=== PATIENT | male | born 1960 | race Caucasian/White ===

== ENCOUNTER 2016-11-07 10:38 | Emergency (ER) | payer OTHER ==
[~2016-11-07] VITALS: Ht 170.2 cm; Wt 96.4 kg
[2016-11-07 11:22] LABS: BASOPHILS % (AUTO) 0.3 % (0.0-2.0); HEMATOCRIT 47.3 % (41-53); HEMOGLOBIN 15.3 g/dL (13.5-17.5); LYMPHOCYTES # (AUTO) 1.5 K/uL (1.0-4.8); LYMPHOCYTES % (AUTO) 27.9 % (22.0-44.0); MEAN CORPUSCULAR HEMOGLOBIN 28.8 pg (26.0-34.0); MEAN CORPUSCULAR HGB CONC 32.4 G/dL (31.0-37.0); MEAN CORPUSCULAR VOLUME 89 fL (80-100); MONOCYTES # (AUTO) 0.5 K/uL (0.1-1.0); MONOCYTES % (AUTO) 9.3 % (2.0-9.0); NEUTROPHILS # (AUTO) 3.2 K/uL (1.8-7.7); NEUTROPHILS % (AUTO) 59.5 % (40.0-70.0); PLATELET COUNT (AUTO) 213 K/uL (150-450); RED BLOOD CELL COUNT(AUTO) 5.33 MIL/uL (4.50-5.90); RED CELL DISTRIBUTION WIDTH 14.6 % (11.5-14.5); WHITE BLOOD COUNT (AUTO) 5.4 K/uL (4.5-11.0)
[2016-11-07 11:32] LABS: ANION GAP 7 mmol/L (8-16); CALCIUM, TOTAL 8.7 mg/dL (8.8-10.5); CARBON DIOXIDE 30 mmol/L (22-29); CHLORIDE 104 mmol/L (98-107); GLOMERULAR FILTR. RATE CALC > 60 mL/min (>60); SODIUM SERUM 141 mmol/L (136-145); UREA NITROGEN, BLOOD 18 mg/dL (7-18)
[2016-11-07 11:33] LABS: INR 0.9 (0.9-1.1)
[2016-11-07 11:43] LABS: B-TYPE NATRIURETIC PEPTIDE 7 pg/mL (0-100)
[2016-11-07 11:56] LABS: ALANINE AMINOTRANSFERASE 34 U/L (12-78); ALBUMIN 3.6 g/dL (3.4-5.0); ASPARTATE AMINOTRANSFERASE 24 U/L (15-37); BILIRUBIN,TOTAL 0.5 mg/dL (0.1-1.0); CREATINE KINASE MB 2.3 ng/mL (0-5); CREATINE KINASE, TOTAL 183 U/L (39-308); TOTAL PROTEIN, SERUM 7.3 g/dL (6.4-8.2)
[2016-11-07 12:02] LABS: GLUCOSE COMMENT 1 Doctor Notified; GLUCOSE,POINT OF CARE 98 MG/DL (70-110)
[2016-11-07 12:09] LABS: APPEARANCE,URINE CLEAR (CLEAR); GLUCOSE, URINE (UA) NEGATIVE (NEGATIVE); KETONES,URINE NEGATIVE (NEGATIVE); LEUKOCYTE ESTERASE ,URINE NEGATIVE (NEGATIVE); OCCULT BLOOD,URINE NEGATIVE (NEGATIVE); PH,URINE 6.5 (5.0-8.0); PROTEIN,URINE NEGATIVE (NEGATIVE)
[2016-11-07 12:10] LABS: ADD UA MICROSCOPIC NO
[2016-11-07 14:16] VITALS: BP 125/87
== END 2016-11-07 14:36 | disposition home or self-care (01) ==
LOC: EMS 10:40
DX: R20.0 Anesthesia of skin (principal); R07.9 Chest pain, unspecified
CPT/HCPCS: 70450; 82962; 93005; 99285

== ENCOUNTER 2019-03-14 07:16 | Emergency (ER) | payer OTHER ==
[~2019-03-14] VITALS: Ht 172.7 cm; Wt 95.5 kg
[2019-03-14] MEDS ORDERED: KETOROLAC TROMETHAMINE 60 MG/2 ML VIAL IM ONE (09:00)
[2019-03-14 12:00] VITALS: BP 130/98
== END 2019-03-14 13:04 | disposition home or self-care (01) ==
LOC: EMS 07:20
DX: M25.511 Pain in right shoulder (principal); W11.XXXA Fall on and from ladder, initial encounter; Y93.89 Activity, other specified; Y92.69 Other specified industrial and construction area as the place of occurrence of the external cause; Y99.0 Civilian activity done for income or pay
CPT/HCPCS: 29105; 73030; 96372; 99283; J1885

== ENCOUNTER 2019-04-06 16:40 | Emergency (ER) | payer OTHER ==
[~2019-04-06] VITALS: Ht 172.7 cm; Wt 102.3 kg
[2019-04-06] MEDS ORDERED: DiphenhydrAMINE HCL 50 MG/ML VIAL IVP ONE (17:15)
[2019-04-06] MEDS ORDERED: SODIUM CHLORIDE 0.9% 1,000 ML IV ONE (17:15)
[2019-04-06] MEDS ORDERED: MethylPREDNISolone SOD SUCC 125 MG/2 ML VIAL IVP ONE (17:15)
[2019-04-06 19:44] VITALS: BP 133/85
== END 2019-04-06 20:22 | disposition home or self-care (01) ==
LOC: EMS 16:41
DX: T63.441A Toxic effect of venom of bees, accidental (unintentional), initial encounter (principal); Y92.89 Other specified places as the place of occurrence of the external cause
CPT/HCPCS: 96374; 96375; 99283; J1200; J2930; J7030

== ENCOUNTER 2019-08-28 11:38 | Emergency (ER) | payer SELFPAY ==
[~2019-08-28] VITALS: Ht 167.6 cm; Wt 113.0 kg
[2019-08-28 12:49] LABS: GLUCOSE, URINE (UA) NEGATIVE (NEGATIVE); KETONES,URINE 15 mg/dL (NEGATIVE); LEUKOCYTE ESTERASE ,URINE NEGATIVE (NEGATIVE); NITRATE,URINE NEGATIVE (NEGATIVE); OCCULT BLOOD,URINE NEGATIVE (NEGATIVE); PROTEIN,URINE POS 1+ (NEGATIVE)
[2019-08-28 13:06] LABS: BASOPHILS % (AUTO) 0.6 % (0.0-2.0); EOSINOPHILS % (AUTO) 1.6 % (1.0-6.0); HEMATOCRIT 47.7 % (41-53); HEMOGLOBIN 15.6 g/dL (13.5-17.5); LYMPHOCYTES # (AUTO) 0.5 K/uL (1.0-4.8); MEAN CORPUSCULAR HEMOGLOBIN 29.3 pg (26.0-34.0); MEAN CORPUSCULAR HGB CONC 32.7 G/dL (31.0-37.0); MEAN CORPUSCULAR VOLUME 90 fL (80-100); MONOCYTES # (AUTO) 0.5 K/uL (0.1-1.0); MONOCYTES % (AUTO) 13.7 % (2.0-9.0); NEUTROPHILS # (AUTO) 2.7 K/uL (1.8-7.7); NEUTROPHILS % (AUTO) 70.1 % (40.0-70.0); PLATELET COUNT (AUTO) 169 K/uL (150-450); RED BLOOD CELL COUNT(AUTO) 5.33 MIL/uL (4.50-5.90); RED CELL DISTRIBUTION WIDTH 14.1 % (11.5-14.5)
[2019-08-28 13:13] LABS: BILIRUBIN,URINE PRELIM. POSITIVE (NEGATIVE)
[2019-08-28 13:14] LABS: APPEARANCE,URINE HAZY (CLEAR); BACTERIA,URINE None Seen /HPF (None Seen); RBC,URINE 0-2 /HPF (0-2); WBC,URINE 0-2 /HPF (0-5)
[2019-08-28 13:18] LABS: ANION GAP 2 mmol/L (8-16); CALCIUM, TOTAL 8.5 mg/dL (8.8-10.5); CARBON DIOXIDE 33 mmol/L (22-29); CHLORIDE 104 mmol/L (98-107); CREATININE 1.17 mg/dL (0.60-1.30); GLOMERULAR FILTR. RATE CALC > 60 mL/min (>60); GLUCOSE,RANDOM 91 mg/dL (70-110); POTASSIUM 3.5 mmol/L (3.5-5.1); SODIUM SERUM 139 mmol/L (136-145); UREA NITROGEN, BLOOD 17 mg/dL (7-18)
[2019-08-28 13:25] LABS: ALANINE AMINOTRANSFERASE 36 U/L (12-78); ALBUMIN 3.2 g/dL (3.4-5.0); ALKALINE PHOSPHATASE 55 U/L (46-116); ASPARTATE AMINOTRANSFERASE 20 U/L (15-37); BILIRUBIN,TOTAL 0.5 mg/dL (0.1-1.0); TOTAL PROTEIN, SERUM 6.8 g/dL (6.4-8.2)
[2019-08-28 13:30] LABS: B-TYPE NATRIURETIC PEPTIDE 22 pg/mL (0-100)
[2019-08-28 13:58] LABS: INFLUENZA TYPE A POSITIVE FOR TYPE A (NEGATIVE); INFLUENZA TYPE B NEGATIVE FOR TYPE B (NEGATIVE)
[2019-08-28 15:03] VITALS: BP 117/72
== END 2019-08-28 15:07 | disposition home or self-care (01) ==
LOC: EMS 11:41
DX: J10.1 Influenza due to other identified influenza virus with other respiratory manifestations (principal); M79.10 Myalgia, unspecified site
CPT/HCPCS: 87804; 93005